=== PATIENT | female | born 1965 | race Caucasian/White ===

== ENCOUNTER 2020-01-22 10:28 | Emergency (ER) | payer OTHER ==
[~2020-01-22] VITALS: Ht 157.5 cm; Wt 60.0 kg
[2020-01-22 11:15] LABS: HEMATOCRIT 43.2 % (37.0-47.0); HEMOGLOBIN 14.2 g/dl (12.0-16.0); IMMATURE GRANULOCYTES 0.2 % (0.0-5.0); MEAN CELL VOLUME 89.8 fL CALC (80.0-100.0); MEAN CORPUSCULAR HGB 29.5 pG CALC (26.0-32.0); MEAN CORPUSCULAR HGB CONC 32.9 g/dL CAL (32.0-36.0); NEUT# 3.03 thou/uL (2.00-7.15); RED BLOOD COUNT 4.81 mill/uL (4.20-5.60)
[2020-01-22 11:28] LABS: ALBUMIN 4.6 g/dL (3.2-5.0); ALKALINE PHOSPHATASE 83 u/l (38-126); ANION GAP 11 (6-22 (CALC)); BILIRUBIN, TOTAL 0.6 mg/dL (0.0-1.4); BUN 11 mg/dL (7-17); BUN/CREATININE RATIO 18 (12-20 (CALC)); CARBON DIOXIDE 25 mmol/l (22-30); CHLORIDE 108 mmol/l (95-108); CREATININE 0.6 mg/dL (0.5-1.0); GFR > 60 ML/MIN (>=60 (CALC)); GFR FOR AFR.AMER. > 60 ML/MIN (>=60 (CALC)); POTASSIUM 3.8 mmol/l (3.5-5.1); SGOT/AST 31 u/l (14-36); SODIUM 140 mmol/l (137-146); TOTAL PROTEIN 7.6 g/dL (6.3-8.2)
[2020-01-22 15:35] VITALS: BP 110/71
== END 2020-01-22 15:09 | disposition short-term general hospital (02) | DRG 66 ==
LOC: ED 10:28 → ED-I 13:04 → ED 15:09
PROVIDERS: Family Medicine
DX: I63.9 Cerebral infarction, unspecified (principal); R20.0 Anesthesia of skin; R29.703 NIHSS score 3; R06.02 Shortness of breath; R07.89 Other chest pain; E78.5 Hyperlipidemia, unspecified; K21.9 Gastro-esophageal reflux disease without esophagitis; F41.9 Anxiety disorder, unspecified; F17.200 Nicotine dependence, unspecified, uncomplicated; Z20.828 Contact with and (suspected) exposure to other viral communicable diseases
CPT/HCPCS: Q9967

== ENCOUNTER 2020-05-28 | Day surgery (SDC) | payer OTHER ==
[~2020-05-28] MED LIST: ASPIRIN 8181 MG PO; ATORVASTATIN CA40 MG PO; CARAFATE1 GM PO; PRILOSEC20 MG/CAP PO; QUESTRAN4 G1 PO; XANAX0.5 MG PO
== END 2020-05-28 12:45 | disposition home or self-care (01) | DRG 392 ==
PROC: 0DB98ZX Excision of Duodenum, Via Natural or Artificial Opening Endoscopic, Diagnostic (ICD-10-PCS; principal; 2020-05-28)
PROC: 0DB78ZX Excision of Stomach, Pylorus, Via Natural or Artificial Opening Endoscopic, Diagnostic (ICD-10-PCS; 2020-05-28)
PROC: 0DBG8ZX Excision of Left Large Intestine, Via Natural or Artificial Opening Endoscopic, Diagnostic (ICD-10-PCS; 2020-05-28)
PROC: 0DBF8ZX Excision of Right Large Intestine, Via Natural or Artificial Opening Endoscopic, Diagnostic (ICD-10-PCS; 2020-05-28)
DX: K52.81 Eosinophilic gastritis or gastroenteritis (principal); K21.00 Gastro-esophageal reflux disease with esophagitis, without bleeding; K44.9 Diaphragmatic hernia without obstruction or gangrene; K57.30 Diverticulosis of large intestine without perforation or abscess without bleeding; K64.8 Other hemorrhoids; K64.4 Residual hemorrhoidal skin tags; Z79.899 Other long term (current) drug therapy; Z86.73 Personal history of transient ischemic attack (TIA), and cerebral infarction without residual deficits; Z20.822 Contact with and (suspected) exposure to COVID-19

== ENCOUNTER 2022-01-25 08:29 | Emergency (ER) | payer OTHER ==
[~2022-01-25] VITALS: Ht 157.5 cm; Wt 65.9 kg
[2022-01-25 08:40] VITALS: BP 111/77
[2022-01-25 08:45] VITALS: BP 118/73
[2022-01-25] MEDS ORDERED: LEXAPRO10 MG PO (08:48)
[2022-01-25 08:58] LABS: HEMATOCRIT 42.2 % (37.0-47.0); HEMOGLOBIN 14.2 g/dl (12.0-16.0); IMMATURE GRANULOCYTES 0.2 % (0.0-5.0); MEAN CELL VOLUME 91.1 fL CALC (80.0-100.0); MEAN CORPUSCULAR HGB 30.7 pG CALC (26.0-32.0); MEAN CORPUSCULAR HGB CONC 33.6 g/dL CAL (32.0-36.0); NEUT# 3.17 thou/uL (2.00-7.15); RED BLOOD COUNT 4.63 mill/uL (4.20-5.60); RED CELL DISTRI WIDTH 11.9 % (11.5-15.5); URINE BILIRUBIN - DIPSTICK NEGATIVE (NEGATIVE); URINE BLOOD DIPSTICK NEGATIVE (NEGATIVE); URINE COLOR YELLOW; URINE GLUCOSE - DIPSTICK NEGATIVE (NEGATIVE); URINE KETONE NEGATIVE (NEGATIVE); URINE LEUK ESTERASE NEGATIVE (NEGATIVE); URINE PROTEIN - DIPSTICK NEGATIVE (NEG-TRACE); URINE SPECIFIC GRAVITY <=1.005; URINE UROBILINOGEN - DIPSTICK 0.2 E.U./dL (0.2)
[2022-01-25 08:59] LABS: URINE NITRITE - DIPSTICK NEGATIVE (Negative)
[2022-01-25 09:00] VITALS: BP 117/71
[2022-01-25 09:15] VITALS: BP 109/70
[2022-01-25 09:20] LABS: ALBUMIN 4.6 g/dL (3.2-5.0); ALKALINE PHOSPHATASE 72 u/l (38-126); ANION GAP 10 (6-22 (CALC)); BILIRUBIN, TOTAL 0.6 mg/dL (0.0-1.4); BUN 8 mg/dL (7-17); BUN/CREATININE RATIO 11 (12-20 (CALC)); CARBON DIOXIDE 27 mmol/l (22-30); CHLORIDE 107 mmol/l (95-108); CREATININE 0.7 mg/dL (0.5-1.0); GFR FOR AFR.AMER. > 60 ML/MIN (>=60 (CALC)); GFR OTHER RACES > 60 ML/MIN (>=60 (CALC)); LIPASE 122 u/l (23-300); POTASSIUM 3.8 mmol/l (3.5-5.1); SGOT/AST 39 u/l (14-36); SODIUM 140 mmol/l (137-146); TOTAL PROTEIN 7.8 g/dL (6.3-8.2)
[2022-01-25 09:30] VITALS: BP 112/62
[2022-01-25 10:31] VITALS: BP 112/62
== END 2022-01-25 10:31 | disposition home or self-care (01) | DRG 392 ==
LOC: ED 08:29
PROVIDERS: Family Medicine
DX: R10.11 Right upper quadrant pain (principal); R10.31 Right lower quadrant pain; K21.9 Gastro-esophageal reflux disease without esophagitis; E78.5 Hyperlipidemia, unspecified; F41.9 Anxiety disorder, unspecified; F32.A Depression, unspecified; Z86.73 Personal history of transient ischemic attack (TIA), and cerebral infarction without residual deficits
CPT/HCPCS: Q9967

== ENCOUNTER 2022-03-16 10:12 | Emergency (ER) | payer OTHER ==
[~2022-03-16] VITALS: Ht 157.5 cm; Wt 65.9 kg
[~2022-03-16 10:12] MED LIST changes: +AMOX/K CLAV875 M1 PO; +AZELASTINE HCL0.15 % NAB; +LEXAPRO10 MG PO; +MEDDOSEPAK PO; +PREDNISONE50 MG PO; +ROBITUSSIN AC10 ML PO; +TIZANIDINE HCL2 MG PO; +XYZAL ALLERGY 245 MG PO
[2022-03-16 10:19] VITALS: BP 125/71
[2022-03-16 10:33] VITALS: BP 106/68
[2022-03-16 10:40] LABS: BASO% 0.7 % (0-3); EOS% 1.3 % (0-8); HEMATOCRIT 39.3 % (37.0-47.0); HEMOGLOBIN 13.6 g/dl (12.0-16.0); IMMATURE GRANULOCYTES 0.3 % (0.0-5.0); LYMPH% 26.1 % (15-41); MEAN CELL VOLUME 91.4 fL CALC (80.0-100.0); MEAN CORPUSCULAR HGB 31.6 pG CALC (26.0-32.0); MEAN CORPUSCULAR HGB CONC 34.6 g/dL CAL (32.0-36.0); MONO% 7.6 % (2-13); NEUT# 4.81 thou/uL (2.00-7.15); RED BLOOD COUNT 4.3 mill/uL (4.20-5.60); RED CELL DISTRI WIDTH 12.1 % (11.5-15.5)
[2022-03-16 10:59] LABS: ALBUMIN 4.5 g/dL (3.2-5.0); ALKALINE PHOSPHATASE 81 u/l (38-126); ANION GAP 11 (6-22 (CALC)); BILIRUBIN, TOTAL 0.4 mg/dL (0.0-1.4); BUN 12 mg/dL (7-17); BUN/CREATININE RATIO 16 (12-20 (CALC)); CARBON DIOXIDE 30 mmol/l (22-30); CHLORIDE 106 mmol/l (95-108); CREATININE 0.7 mg/dL (0.5-1.0); GFR FOR AFR.AMER. > 60 ML/MIN (>=60 (CALC)); GFR OTHER RACES > 60 ML/MIN (>=60 (CALC)); LIPASE 192 u/l (23-300); POTASSIUM 4.1 mmol/l (3.5-5.1); SGOT/AST 34 u/l (14-36); SODIUM 143 mmol/l (137-146); TOTAL PROTEIN 7.2 g/dL (6.3-8.2)
[2022-03-16 11:00] VITALS: BP 121/86
[2022-03-16 11:02] LABS: CPK 59 u/l (30-165)
[2022-03-16 11:30] VITALS: BP 116/74
[2022-03-16 12:30] VITALS: BP 121/65
[2022-03-16] MEDS ORDERED: ATIVAN1 MG PO (12:51)
[2022-03-16] MEDS ORDERED: MELOXICAM15 MG PO (12:51)
[2022-03-16 13:05] VITALS: BP 121/65
== END 2022-03-16 13:07 | disposition home or self-care (01) | DRG 313 ==
LOC: ED 10:12
PROVIDERS: Internal Medicine
DX: R07.9 Chest pain, unspecified (principal); R07.81 Pleurodynia; K21.9 Gastro-esophageal reflux disease without esophagitis; E78.5 Hyperlipidemia, unspecified; F32.A Depression, unspecified; Z86.73 Personal history of transient ischemic attack (TIA), and cerebral infarction without residual deficits
CPT/HCPCS: J2060

== ENCOUNTER 2024-05-12 07:59 | Day surgery (SDC) | payer OTHER ==
[~2024-05-12] VITALS: Ht 157.5 cm; Wt 66.7 kg
[~2024-05-12 07:59] MED LIST changes: +ASPIRIN LOW81 M1 PO; +ATIVAN1 MG PO; +AZELASTINE HCL0.1 % NAB; +CALCIUM +D PO; +CLARITIN-D1 TA4 PO; +CLARITIN10 M1 PO; +ISOSORB MONO10 MG PO; +ISOSORBIDE DINIT5 MG PO; +LEXAPRO20 MG PO; +MELOXICAM15 MG PO; +OMEPRAZOLE DR40 MG PO; +OS-CAL 500500 M1 PO; +PATADAY0.1 %; +PRAVASTATIN SOD10 MG PO; +PROBIOTIC PO; +VALTREX1 GM PO; +VALTREX500 MG PO; +XYZAL ALLERGY 245 MG; +ZETIA10 MG PO
[2024-05-12] MEDS ORDERED: LACTATED RINGER'S 1,000 ML IV ONE (08:01)
[2024-05-12] MEDS ORDERED: FAMOTIDINE 10MG/ML 2ML SDV IV ONE (08:41)
[2024-05-12] MEDS ORDERED: ONDANSETRON HCl 4 MG/2 ML SDV ONE (09:39)
[2024-05-12 10:03] VITALS: BP 122/85
[2024-05-12] MEDS ORDERED: GLYCOPYRROLATE 0.2 MG/ML IV ONE (13:04)
[2024-05-12] MEDS ORDERED: PROPOFOL 200 MG/20 ML VIAL IV ONE (13:04)
[2024-05-12] MEDS ORDERED: LIDOCAINE HCL 2% 2ML SDV IV ONE (13:04)
== END 2024-05-12 09:53 | disposition home or self-care (01) | DRG 951 ==
LOC: ORM 07:59
PROVIDERS: ATTEND Surgery
PROC: 0DJD8ZZ Inspection of Lower Intestinal Tract, Via Natural or Artificial Opening Endoscopic (ICD-10-PCS; principal; 2024-05-12)
PROC: 0DB98ZX Excision of Duodenum, Via Natural or Artificial Opening Endoscopic, Diagnostic (ICD-10-PCS; 2024-05-12)
PROC: 0DB78ZX Excision of Stomach, Pylorus, Via Natural or Artificial Opening Endoscopic, Diagnostic (ICD-10-PCS; 2024-05-12)
PROC: 0DB48ZX Excision of Esophagogastric Junction, Via Natural or Artificial Opening Endoscopic, Diagnostic (ICD-10-PCS; 2024-05-12)
DX: Z12.11 Encounter for screening for malignant neoplasm of colon (principal); K64.8 Other hemorrhoids; K21.9 Gastro-esophageal reflux disease without esophagitis; K31.89 Other diseases of stomach and duodenum; K44.9 Diaphragmatic hernia without obstruction or gangrene; F41.9 Anxiety disorder, unspecified; F32.A Depression, unspecified; Z86.73 Personal history of transient ischemic attack (TIA), and cerebral infarction without residual deficits; Z80.0 Family history of malignant neoplasm of digestive organs
CPT/HCPCS: J1596; J2405